=== PATIENT | male | born 1975 | race Caucasian/White ===

== ENCOUNTER 2016-08-12 10:58 | Emergency (ER) | payer MEDICARE ==
[2016-08-12] MEDS ORDERED: DILAUDID 1 MG/ML AMP ONE (12:26)
[2016-08-12] MEDS ORDERED: ONDANSETRON ODT 4 MG TAB ONE (12:26)
== END 2016-08-12 13:15 | disposition home or self-care (01) ==
LOC: ER 10:58
DX: S43.422A Sprain of left rotator cuff capsule, initial encounter (principal); S40.012A Contusion of left shoulder, initial encounter; W11.XXXA Fall on and from ladder, initial encounter; Y92.009 Unspecified place in unspecified non-institutional (private) residence as the place of occurrence of the external cause; L27.0 Generalized skin eruption due to drugs and medicaments taken internally; T40.2X5A Adverse effect of other opioids, initial encounter; M19.012 Primary osteoarthritis, left shoulder; I10 Essential (primary) hypertension; H91.8X9 Other specified hearing loss, unspecified ear
CPT/HCPCS: 73030; 96372; 99283; J1170